=== PATIENT | male | born 1975 | race Caucasian/White ===

== ENCOUNTER 2016-08-02 09:05 | Emergency (ER) | payer OTHER ==
[~2016-08-02] VITALS: Ht 175.3 cm; Wt 96.2 kg
[~2016-08-02 09:05] MED LIST: NIZORAL 2% CREA15 GM TP; NOHOMEMEDS
[2016-08-02 09:49] LABS: HEMATOCRIT 46.1 % (38.0-50.0); MCH 30.3 PG (29.0-34.0); MCHC 34.9 G/DL (30.0-36.0); MCV 86.7 FL (86-99); MEAN PLAT.VOLUME 10.2 uM^3 (9.0-12.4); PLATELET COUNT 243 K/uL (156-360); RBC DIS.WIDTH-CV 12.7 % (11.8-14.6); RED BLOOD COUNT 5.32 M/uL (4.00-5.50); WHITE BLOOD COUNT 4.3 K/uL (4.1-10.2)
[2016-08-02 10:00] LABS: CHLORIDE 105 mEq/L (99-109); POTASSIUM 4.1 mEq/L (3.7-5.4); SODIUM 139 mEq/L (136-147)
[2016-08-02 10:01] LABS: GLUCOSE 95 mg/dL (70-99)
[2016-08-02 10:03] LABS: ANION GAP 10 MEQ/L (2-14)
[2016-08-02 10:05] LABS: GFR ESTIMATE (CALCULATED) > 59 mL/min/
[2016-08-02 10:06] LABS: UREA NITROGEN (BUN) 14 mg/dL (9-23)
[2016-08-02 10:21] LABS: ADD MIUA? YES; BILIRUBIN NEGATIVE; BLOOD NEGATIVE; COLOR YELLOW ((YELLOW)); GLUCOSE (STRIP) NEGATIVE; KETONES 5; LEUKOCYTES NEGATIVE; NITRITE NEGATIVE; PROTEIN (STRIP) 30; SPECIFIC GRAVITY 1.028 (1.000-1.030); UROBILINOGEN 0.2 MG/DL (0.2-1.0)
[2016-08-02 10:24] LABS: ADD MEDTOX COMMENT Y; AMPHETAMINE NEGATIVE (500 ng/mL); BARBITURATES NEGATIVE (200 ng/mL); BENZODIAZEPINES NEGATIVE (150 ng/mL); COCAINE NEGATIVE (150 ng/mL); INTERNAL CONTROLS VALID? YES; METHADONE NEGATIVE (200 ng/mL); METHAMPHETAMINE NEGATIVE (500 ng/mL); OPIATES (MORPHINE) NEGATIVE (100 ng/mL); OXYCODONE NEGATIVE (100 ng/mL); PHENCYCLIDINE NEGATIVE (25 ng/mL); PROPOXYPHENE NEGATIVE (300 ng/mL); THC CANNABINOIDS PRESUMPTIVE POSITIVE (50 ng/mL); TRICYCLIC ANTIDEPRESSANTS NEGATIVE (300 ng/mL)
[2016-08-02 10:29] LABS: BACTERIA NONE SEEN /HPF; EPITHELIAL CELLS NONE SEEN /HPF; MUCUS 4+ /LPF; RED BLOOD CELLS 0-5 /HPF (0-5); WHITE BLOOD CELLS 0-5 /HPF (0-5)
[2016-08-02] MEDS ORDERED: ZOFRAN4 MG PO (10:33)
[2016-08-02 10:41] VITALS: BP 137/99
== END 2016-08-02 10:43 | disposition home or self-care (01) ==
LOC: EME 09:05
PROVIDERS: Emergency Medicine
DX: R11.10 Vomiting, unspecified (principal); R19.7 Diarrhea, unspecified
CPT/HCPCS: 80048; 81003; 84999; 85027; 99281; 99283

== ENCOUNTER 2016-10-07 14:34 | Emergency (ER) | payer OTHER ==
[~2016-10-07] VITALS: Ht 175.3 cm; Wt 95.3 kg
[~2016-10-07 14:34] MED LIST changes: +ZOFRAN4 MG PO
[2016-10-07 16:06] LABS: HEMATOCRIT 44.8 % (38.0-50.0); MCH 30.3 PG (29.0-34.0); MCHC 33.9 G/DL (30.0-36.0); MCV 89.4 FL (86-99); MEAN PLAT.VOLUME 10.4 uM^3 (9.0-12.4); PLATELET COUNT 255 K/uL (156-360); RBC DIS.WIDTH-CV 12.7 % (11.8-14.6); RBC DIS.WIDTH-SD 41.5 % (39-53); RED BLOOD COUNT 5.01 M/uL (4.00-5.50); WHITE BLOOD COUNT 6.4 K/uL (4.1-10.2)
[2016-10-07 16:15] LABS: CHLORIDE 105 mEq/L (99-109); POTASSIUM 4.1 mEq/L (3.7-5.4); SODIUM 140 mEq/L (136-147)
[2016-10-07 16:17] LABS: GLUCOSE 89 mg/dL (70-99)
[2016-10-07 16:18] LABS: ANION GAP 9 MEQ/L (2-14)
[2016-10-07 16:21] LABS: GFR ESTIMATE (CALCULATED) > 59 mL/min/
[2016-10-07 16:22] LABS: UREA NITROGEN (BUN) 12 mg/dL (9-23)
[2016-10-07 16:31] LABS: TROP-I INTERPRETATION NEGATIVE; TROPONIN-I < 0.01 ng/mL (0.0-0.30)
[2016-10-07 18:37] LABS: ADD MIUA? NO; BILIRUBIN NEGATIVE; BLOOD NEGATIVE; COLOR YELLOW ((YELLOW)); GLUCOSE (STRIP) NEGATIVE; KETONES NEGATIVE; LEUKOCYTES NEGATIVE; NITRITE NEGATIVE; PROTEIN (STRIP) NEGATIVE; SPECIFIC GRAVITY 1.019 (1.000-1.030); UROBILINOGEN 0.2 MG/DL (0.2-1.0)
[2016-10-07] MEDS ORDERED: PEPCID20 MG PO (18:58)
[2016-10-07] MEDS ORDERED: CARAFATE1 GM PO (18:58)
[2016-10-07 19:12] VITALS: BP 129/88
== END 2016-10-07 19:13 | disposition home or self-care (01) ==
LOC: EME 14:34
PROVIDERS: Physician Assistant
DX: K29.70 Gastritis, unspecified, without bleeding (principal); R55 Syncope and collapse; R00.1 Bradycardia, unspecified; A69.20 Lyme disease, unspecified
CPT/HCPCS: 71020; 80048; 81003; 84484; 85027; 93005; 99281; 99284

== ENCOUNTER 2016-11-05 18:50 | Emergency (ER) | payer OTHER ==
[~2016-11-05] VITALS: Ht 172.7 cm; Wt 97.2 kg
[~2016-11-05 18:50] MED LIST changes: +CARAFATE1 GM PO; +PEPCID20 MG PO
[2016-11-05 20:21] LABS: HEMATOCRIT 41.6 % (38.0-50.0); MCH 29.8 PG (29.0-34.0); MCHC 33.7 G/DL (30.0-36.0); MCV 88.5 FL (86-99); MEAN PLAT.VOLUME 10.3 uM^3 (9.0-12.4); PLATELET COUNT 239 K/uL (156-360); RBC DIS.WIDTH-CV 12.7 % (11.8-14.6); RBC DIS.WIDTH-SD 41.1 % (39-53); WHITE BLOOD COUNT 6.3 K/uL (4.1-10.2)
[2016-11-05 20:29] LABS: CHLORIDE 105 mEq/L (99-109); POTASSIUM 3.6 mEq/L (3.7-5.4); SODIUM 140 mEq/L (136-147)
[2016-11-05 20:30] LABS: GLUCOSE 123 mg/dL (70-99)
[2016-11-05 20:32] LABS: ANION GAP 8 MEQ/L (2-14)
[2016-11-05 20:34] LABS: GFR ESTIMATE (CALCULATED) > 59 mL/min/
[2016-11-05 20:35] LABS: UREA NITROGEN (BUN) 16 mg/dL (9-23)
[2016-11-05 20:39] LABS: ADD MIUA? NO; BILIRUBIN NEGATIVE; BLOOD NEGATIVE; COLOR YELLOW ((YELLOW)); GLUCOSE (STRIP) NEGATIVE; KETONES NEGATIVE; LEUKOCYTES NEGATIVE; NITRITE NEGATIVE; PROTEIN (STRIP) NEGATIVE; SPECIFIC GRAVITY 1.016 (1.000-1.030); UCUL ADDED? NO; UROBILINOGEN 0.2 MG/DL (0.2-1.0)
[2016-11-05] MEDS ORDERED: MOTRIN600 MG PO (22:05)
[2016-11-05 22:19] VITALS: BP 123/74
== END 2016-11-05 22:21 | disposition home or self-care (01) ==
LOC: EME 18:50
DX: M54.5 Low back pain (principal); A69.20 Lyme disease, unspecified
CPT/HCPCS: 80048; 81003; 85027; 99281; 99282

== ENCOUNTER 2017-01-06 09:22 | Emergency (ER) | payer OTHER ==
[~2017-01-06] VITALS: Ht 172.7 cm; Wt 95.8 kg
[~2017-01-06 09:22] MED LIST changes: +MOTRIN600 MG PO
[2017-01-06] MEDS ORDERED: ZANTAC150 MG PO (09:36)
[2017-01-06 10:14] LABS: ADD MIUA? NO; BILIRUBIN NEGATIVE; BLOOD NEGATIVE; COLOR YELLOW ((YELLOW)); GLUCOSE (STRIP) NEGATIVE; KETONES NEGATIVE; LEUKOCYTES NEGATIVE; NITRITE NEGATIVE; PROTEIN (STRIP) NEGATIVE; SPECIFIC GRAVITY 1.018 (1.000-1.030); UROBILINOGEN 0.2 MG/DL (0.2-1.0)
[2017-01-06 10:38] LABS: HEMATOCRIT 44.4 % (38.0-50.0); MCH 29.7 PG (29.0-34.0); MCV 87.2 FL (86-99); MEAN PLAT.VOLUME 10.1 uM^3 (9.0-12.4); PLATELET COUNT 240 K/uL (156-360); RBC DIS.WIDTH-CV 12.3 % (11.8-14.6); RBC DIS.WIDTH-SD 39.4 % (39-53); RED BLOOD COUNT 5.09 M/uL (4.00-5.50); WHITE BLOOD COUNT 5.8 K/uL (4.1-10.2)
[2017-01-06 10:45] LABS: CHLORIDE 103 mEq/L (99-109); SODIUM 138 mEq/L (136-147)
[2017-01-06 10:46] LABS: GLUCOSE 89 mg/dL (70-99)
[2017-01-06 10:48] LABS: ANION GAP 8 MEQ/L (2-14)
[2017-01-06 10:50] LABS: GFR ESTIMATE (CALCULATED) > 59 mL/min/
[2017-01-06 10:51] LABS: UREA NITROGEN (BUN) 18 mg/dL (9-23)
[2017-01-06] MEDS ORDERED: MIRALAX255 GM PO (10:58)
[2017-01-06 11:16] VITALS: BP 117/83
[2017-01-07] MEDS ORDERED: NAPROXEN CR500 MG PO (22:05)
[2017-01-07] MEDS ORDERED: NAPROXEN500 MG PO (22:06)
== END 2017-01-06 11:18 | disposition home or self-care (01) ==
LOC: EME 09:22
PROVIDERS: Nurse Practitioner Family
DX: R10.9 Unspecified abdominal pain (principal); R39.89 Other symptoms and signs involving the genitourinary system; K59.00 Constipation, unspecified; K21.9 Gastro-esophageal reflux disease without esophagitis
CPT/HCPCS: 74000; 80048; 81003; 85027; 99281; 99283

== ENCOUNTER 2017-01-07 19:35 | Emergency (ER) | payer OTHER ==
[~2017-01-07] VITALS: Ht 172.7 cm; Wt 97.9 kg
[~2017-01-07 19:35] MED LIST changes: +MIRALAX255 GM PO; +ZANTAC150 MG PO
[2017-01-07 19:37] VITALS: BP 137/85
[2017-01-07] MEDS ORDERED: NAPROXEN CR500 MG PO (22:05)
[2017-01-07] MEDS ORDERED: NAPROXEN500 MG PO (22:06)
== END 2017-01-07 23:18 | disposition home or self-care (01) ==
LOC: EME 19:35
DX: M54.5 Low back pain (principal); G89.29 Other chronic pain; A69.20 Lyme disease, unspecified
CPT/HCPCS: 71020; 72100; 99281; 99283

== ENCOUNTER 2017-04-11 14:02 | Emergency (ER) | payer OTHER ==
[~2017-04-11] VITALS: Ht 172.7 cm; Wt 102.2 kg
[~2017-04-11 14:02] MED LIST changes: +NAPROXEN CR500 MG PO; +NAPROXEN500 MG PO
[2017-04-11 14:47] VITALS: BP 128/93
[2017-04-11 15:25] LABS: HEMATOCRIT 42.7 % (38.0-50.0); MCH 30.2 PG (29.0-34.0); MCHC 33.7 G/DL (30.0-36.0); MCV 89.5 FL (86-99); MEAN PLAT.VOLUME 10.4 uM^3 (9.0-12.4); PLATELET COUNT 264 K/uL (156-360); RBC DIS.WIDTH-CV 12.4 % (11.8-14.6); RBC DIS.WIDTH-SD 40.7 % (39-53); RED BLOOD COUNT 4.77 M/uL (4.00-5.50); WHITE BLOOD COUNT 6.6 K/uL (4.1-10.2)
[2017-04-11 15:40] LABS: CHLORIDE 106 mEq/L (99-109); POTASSIUM 3.9 mEq/L (3.7-5.4); SODIUM 139 mEq/L (136-147)
[2017-04-11 15:42] LABS: GLUCOSE 85 mg/dL (70-99)
[2017-04-11 15:43] LABS: ANION GAP 7 MEQ/L (2-14)
[2017-04-11 15:44] LABS: TOTAL BILIRUBIN 0.2 mg/dL (0.0-1.0)
[2017-04-11 15:46] LABS: ALKALINE PHOSPHATASE 83 IU/L (3-129); GFR ESTIMATE (CALCULATED) > 59 mL/min/
[2017-04-11 15:47] LABS: UREA NITROGEN (BUN) 14 mg/dL (9-23)
[2017-04-11 17:27] LABS: URIC ACID 6.8 mg/dL (3.1-9.2)
[2017-04-11 17:43] LABS: C-REACTIVE PROTEIN < 1.0 MG/L (0-10)
[2017-04-11] MEDS ORDERED: MOTRIN600 MG PO (17:50)
[2017-04-11] MEDS ORDERED: SKELAXIN800 MG PO (17:50)
[2017-04-12 10:08] LABS: LYME DISEASE SEROLOGY SCREEN NEGATIVE (NEGATIVE)
== END 2017-04-11 18:06 | disposition home or self-care (01) ==
LOC: EME 14:02
PROVIDERS: Physician Assistant
DX: M25.50 Pain in unspecified joint (principal); M54.9 Dorsalgia, unspecified; A69.20 Lyme disease, unspecified; K21.9 Gastro-esophageal reflux disease without esophagitis
CPT/HCPCS: 80053; 81003; 84550; 85027; 85651; 86140; 86618; 99281; 99284

== ENCOUNTER 2017-04-18 14:45 | Emergency (ER) | payer OTHER ==
[~2017-04-18] VITALS: Ht 172.7 cm; Wt 102.1 kg
[~2017-04-18 14:45] MED LIST changes: +SKELAXIN800 MG PO
[2017-04-18 14:55] VITALS: BP 126/87
== END 2017-04-18 17:38 | disposition left against medical advice (07) ==
LOC: EME 14:45
DX: R10.9 Unspecified abdominal pain (principal); R11.2 Nausea with vomiting, unspecified; R19.7 Diarrhea, unspecified; Z53.20 Procedure and treatment not carried out because of patient's decision for unspecified reasons
CPT/HCPCS: 99281; 99282